=== PATIENT | male | born 1970 | race African-American/Black ===

== ENCOUNTER 2017-05-10 12:40 | Emergency (ER) | payer OTHER ==
[~2017-05-10] VITALS: Ht 182.9 cm; Wt 80.9 kg
[~2017-05-10 12:40] MED LIST: BENZ0.5T6 PO; RISP2TAB76 PO
[2017-05-10 12:41] VITALS: BP 124/70
== END 2017-05-10 14:09 | disposition left against medical advice (07) ==
LOC: EMS 12:41
DX: F20.0 Paranoid schizophrenia (principal); R42 Dizziness and giddiness; F31.9 Bipolar disorder, unspecified; F15.90 Other stimulant use, unspecified, uncomplicated; Z91.010 Allergy to peanuts
CPT/HCPCS: 99283

== ENCOUNTER 2018-03-09 05:41 | Emergency (ER) | payer OTHER ==
[~2018-03-09] VITALS: Ht 182.9 cm; Wt 81.8 kg
[~2018-03-09 05:41] MED LIST changes: +BENZ0.5T44 PO; -BENZ0.5T6 PO
[2018-03-09] MEDS ORDERED: LIDOCAINE HCL 1% 20 ML VIAL INJ ONE (07:00)
[2018-03-09 08:05] VITALS: BP 110/77
== END 2018-03-09 08:05 | disposition home or self-care (01) ==
LOC: EMS 05:42
DX: L02.214 Cutaneous abscess of groin (principal); L03.314 Cellulitis of groin; F15.90 Other stimulant use, unspecified, uncomplicated; F19.90 Other psychoactive substance use, unspecified, uncomplicated; Z91.010 Allergy to peanuts
CPT/HCPCS: 10060; 99283; J3490

== ENCOUNTER 2018-08-05 01:08 | Emergency (ER) | payer OTHER ==
[~2018-08-05] VITALS: Ht 182.9 cm; Wt 81.8 kg
[2018-08-05] MEDS ORDERED: BUPIVACAINE HCL/PF 0.25% 10 ML VIAL INJ ONE (01:45)
[2018-08-05] MEDS ORDERED: CEPHALEXIN MONOHYDRATE 500 MG CAPSULE PO ONE (02:00)
[2018-08-05] MEDS ORDERED: DOXYCYCLINE HYCLATE 100 MG CAPSULE PO ONE (02:00)
[2018-08-05 02:04] VITALS: BP 122/63
== END 2018-08-05 02:09 | disposition home or self-care (01) ==
LOC: EMS 01:10
DX: L02.01 Cutaneous abscess of face (principal); F31.9 Bipolar disorder, unspecified; F20.9 Schizophrenia, unspecified; F41.9 Anxiety disorder, unspecified; F15.90 Other stimulant use, unspecified, uncomplicated; F17.210 Nicotine dependence, cigarettes, uncomplicated; Z91.010 Allergy to peanuts
CPT/HCPCS: 10060; 99283; 99406; J3490

== ENCOUNTER 2018-08-09 12:03 | Emergency (ER) | payer OTHER ==
[~2018-08-09] VITALS: Ht 185.4 cm; Wt 81.4 kg
[2018-08-09 12:31] VITALS: BP 124/75
== END 2018-08-09 18:51 | disposition left against medical advice (07) ==
LOC: EMS 12:05
DX: M79.604 Pain in right leg (principal); F41.9 Anxiety disorder, unspecified; F31.9 Bipolar disorder, unspecified; F20.9 Schizophrenia, unspecified; F19.90 Other psychoactive substance use, unspecified, uncomplicated; F15.90 Other stimulant use, unspecified, uncomplicated; F17.210 Nicotine dependence, cigarettes, uncomplicated; Z53.21 Procedure and treatment not carried out due to patient leaving prior to being seen by health care provider

== ENCOUNTER 2019-02-02 13:46 | Emergency (ER) | payer OTHER ==
[~2019-02-02] VITALS: Ht 177.8 cm; Wt 77.3 kg
[2019-02-02] MEDS: LIDOCAINE 1% 10 ML VIAL INJ ONE (15:28)
[2019-02-02] MEDS: IBUPROFEN 600 MG TABLET PO ONE (15:28)
[2019-02-02] MEDS: CEPHALEXIN MONOHYDRATE 500 MG CAPSULE PO ONE (15:28)
[2019-02-02] MEDS: SULFAMETHOX/TRIMETH DS 800-160 MG/TABLET PO ONE (15:28)
[2019-02-02] MEDS: LIDOCAINE 5% TRANSDERMAL PATCH TD ONE (15:29)
[2019-02-02 15:59] VITALS: BP 136/85
== END 2019-02-02 16:18 | disposition home or self-care (01) ==
LOC: EMS 13:47
DX: N61.1 Abscess of the breast and nipple (principal); M54.42 Lumbago with sciatica, left side; M54.41 Lumbago with sciatica, right side; F17.210 Nicotine dependence, cigarettes, uncomplicated; F41.9 Anxiety disorder, unspecified; F31.9 Bipolar disorder, unspecified; F20.9 Schizophrenia, unspecified; F12.90 Cannabis use, unspecified, uncomplicated; F15.90 Other stimulant use, unspecified, uncomplicated; F19.90 Other psychoactive substance use, unspecified, uncomplicated; Z91.010 Allergy to peanuts
CPT/HCPCS: 10060; 99284; 99406; J3490

== ENCOUNTER 2019-07-06 19:01 | Emergency (ER) | payer OTHER | END 2019-07-06 21:31 | disposition left against medical advice (07) | LOC: EMS 19:02 | DX: M54.9 Dorsalgia, unspecified (principal); Z53.21 Procedure and treatment not carried out due to patient leaving prior to being seen by health care provider ==

== ENCOUNTER 2023-07-22 03:32 | Emergency (ER) | payer OTHER ==
[~2023-07-22] VITALS: Ht 182.9 cm; Wt 81.8 kg
[2023-07-22] MEDS ORDERED: PREG75 PO (04:18)
[2023-07-22] MEDS ORDERED: TERB250T90 PO (04:18)
[2023-07-22] MEDS ORDERED: PREGABALIN 75 MG CAPSULE PO ONE (04:30)
[2023-07-22] MEDS ORDERED: VIT E ACET/GLY/DIMETH/WATER 236 ML LOTION TP ONE (04:30)
[2023-07-22 04:40] VITALS: BP 129/68; PULSE 88; RESP 16; TEMP 97.9
== END 2023-07-22 04:48 | disposition home or self-care (01) ==
LOC: EMS 03:33
DX: B35.1 Tinea unguium (principal); R20.2 Paresthesia of skin; F20.9 Schizophrenia, unspecified; F41.9 Anxiety disorder, unspecified; F31.9 Bipolar disorder, unspecified; F17.210 Nicotine dependence, cigarettes, uncomplicated; F12.90 Cannabis use, unspecified, uncomplicated; F15.90 Other stimulant use, unspecified, uncomplicated; Z91.010 Allergy to peanuts
CPT/HCPCS: 99283

== ENCOUNTER 2023-07-23 07:55 | Emergency (ER) | payer OTHER ==
[~2023-07-23] VITALS: Ht 188 cm; Wt 113.6 kg
[~2023-07-23 07:55] MED LIST changes: -BENZ0.5T44 PO; +PREG75 PO; -RISP2TAB76 PO; +TERB250T90 PO
[2023-07-23 08:01] VITALS: TEMP 97.9
[2023-07-23 09:00] VITALS: BP 110/57; PULSE 84; RESP 18
[2023-07-23] MEDS ORDERED: KETOROLAC TROMETHAMINE 60 MG/2 ML VIAL IM ONE (09:30)
== END 2023-07-23 09:00 | disposition left against medical advice (07) ==
LOC: EMS 07:56
DX: M79.672 Pain in left foot (principal); M79.671 Pain in right foot; F41.9 Anxiety disorder, unspecified; F31.9 Bipolar disorder, unspecified; F20.9 Schizophrenia, unspecified; F17.210 Nicotine dependence, cigarettes, uncomplicated; F15.90 Other stimulant use, unspecified, uncomplicated; F12.90 Cannabis use, unspecified, uncomplicated
CPT/HCPCS: 99281; Z7502

== ENCOUNTER 2023-09-16 18:20 | Emergency (ER) | payer OTHER ==
[~2023-09-16] VITALS: Ht 177.8 cm; Wt 76.0 kg
[2023-09-16 18:38] VITALS: TEMP 98
[2023-09-16 19:04] LABS: COVID AG,FIA SOURCE NASAL SWAB
[2023-09-16 19:34] LABS: SARS-COV2 (COVID) ANTIGEN,FIA Negative (Negative)
[2023-09-16 19:51] LABS: INFLUENZA TYPE B NEGATIVE FOR TYPE B (NEGATIVE)
[2023-09-16 19:53] LABS: INFLUENZA TYPE A POSITIVE FOR TYPE A (NEGATIVE)
[2023-09-16 22:30] VITALS: BP 118/61; PULSE 81; RESP 17
[2023-09-16] MEDS ORDERED: OSELTAMIVIR PHOSPHATE 75 MG CAPSULE PO ONE (22:45)
[2023-09-16] MEDS ORDERED: ACETAMINOPHEN 500 MG TABLET PO ONE (22:45)
[2023-09-16 23:10] LABS: BASOPHILS % (AUTO) 0.3 % (0.0-2.0); EOSINOPHILS % (AUTO) 0.1 % (1.0-6.0); HEMATOCRIT 43.3 % (41-53); HEMOGLOBIN 15.1 g/dL (13.5-17.5); LYMPHOCYTES # (AUTO) 0.9 K/uL (1.0-4.8); LYMPHOCYTES % (AUTO) 9.2 % (22.0-44.0); MEAN CORPUSCULAR HEMOGLOBIN 32.5 pg (26.0-34.0); MEAN CORPUSCULAR HGB CONC 34.8 G/dL (31.0-37.0); MEAN CORPUSCULAR VOLUME 93 fL (80-100); MONOCYTES # (AUTO) 0.9 K/uL (0.1-1.0); MONOCYTES % (AUTO) 9.5 % (2.0-9.0); NEUTROPHILS # (AUTO) 7.8 K/uL (1.8-7.7); NEUTROPHILS % (AUTO) 80.9 % (40.0-70.0); PLATELET COUNT (AUTO) 241 K/uL (150-450); RED BLOOD CELL COUNT(AUTO) 4.63 MIL/uL (4.50-5.90); RED CELL DISTRIBUTION WIDTH 13.2 % (11.5-14.5); WHITE BLOOD COUNT (AUTO) 9.6 K/uL (4.5-11.0)
[2023-09-16 23:26] LABS: ANION GAP 9 mmol/L (8-16); CALCIUM, TOTAL 9.4 mg/dL (8.8-10.5); CARBON DIOXIDE 29 mmol/L (22-29); CHLORIDE 94 mmol/L (98-107); CREATININE 1.01 mg/dL (0.60-1.30); GLOMERULAR FILTR. RATE CALC > 60 mL/min (>60); GLUCOSE,RANDOM 112 mg/dL (70-110); POTASSIUM 4.6 mmol/L (3.5-5.1); SODIUM SERUM 132 mmol/L (136-145); UREA NITROGEN, BLOOD 15 mg/dL (7-18)
[2023-09-16 23:31] LABS: TROPONIN I-HIGH SENSITIVITY 5 ng/L (<76)
[2023-09-16 23:39] LABS: ALANINE AMINOTRANSFERASE 27 U/L (12-78); ALBUMIN 3.4 g/dL (3.4-5.0); ALKALINE PHOSPHATASE 56 U/L (46-116); ASPARTATE AMINOTRANSFERASE 20 U/L (15-37); CREATINE KINASE, TOTAL ONLY 113 U/L (39-308); TOTAL PROTEIN, SERUM 8.4 g/dL (6.4-8.2)
[2023-09-16 23:44] LABS: B-TYPE NATRIURETIC PEPTIDE 11 pg/mL (0-100)
[2023-09-16] MEDS ORDERED: OSEL75 PO (23:51)
== END 2023-09-17 01:10 | disposition home or self-care (01) ==
LOC: EMS 18:21
DX: J10.1 Influenza due to other identified influenza virus with other respiratory manifestations (principal); F41.9 Anxiety disorder, unspecified; F31.9 Bipolar disorder, unspecified; F20.9 Schizophrenia, unspecified; F17.210 Nicotine dependence, cigarettes, uncomplicated; F12.90 Cannabis use, unspecified, uncomplicated; F15.90 Other stimulant use, unspecified, uncomplicated; Z91.010 Allergy to peanuts; Z20.822 Contact with and (suspected) exposure to COVID-19
CPT/HCPCS: 71045; 80053; 82550; 83880; 84484; 85025; 87804; 93005; 99285; 36415-L1; 36415-TC

== ENCOUNTER 2025-01-22 07:19 | Emergency (ER) | payer OTHER ==
[~2025-01-22] VITALS: Ht 182.9 cm; Wt 81.8 kg
[~2025-01-22 07:19] MED LIST changes: +OSEL75CA45 PO; -PREG75 PO; -TERB250T90 PO
[2025-01-22 07:22] VITALS: BP 118/76; PULSE 97; RESP 18; O2SAT 100
[2025-01-22] MEDS ORDERED: CEPH-558 PO (08:11)
[2025-01-23] MEDS ORDERED: CEPH-558 PO (14:44)
== END 2025-01-22 08:22 | disposition home or self-care (01) ==
LOC: EMS 07:27
DX: L08.9 Local infection of the skin and subcutaneous tissue, unspecified (principal); F12.90 Cannabis use, unspecified, uncomplicated; F20.0 Paranoid schizophrenia; F31.9 Bipolar disorder, unspecified; F41.9 Anxiety disorder, unspecified; F17.210 Nicotine dependence, cigarettes, uncomplicated; F15.10 Other stimulant abuse, uncomplicated; Z91.010 Allergy to peanuts
CPT/HCPCS: 99283; Z7502